=== PATIENT | female | born 1985 | race Caucasian/White ===

== ENCOUNTER 2022-05-31 11:53 | Inpatient (IN) | payer MEDICAID ==
[~2022-05-31] VITALS: Ht 154.9 cm; Wt 86.2 kg
[~2022-05-31 11:53] MED LIST: LIDOCAINE/EPI 2% 1:100000 20 ML VIAL INJ ONE; METOCLOPRAMIDE HCL 10 MG/2 ML VIAL ONE; MORPHINE SULFATE 10MG/10ML PF AMP ONE; NS IRRIG SOLN 1000 ML IR ONE; ONDANSETRON HCL 4 MG/2 ML VIAL ONE; OXYTOCIN 10 UNIT/ML VIAL ONE; PHENYLEPHRINE HCL 10 MG/ML VIAL (NEOSYNEPHRINE) ONE; ceFAZolin SODIUM 1 GM VIAL ONE
[2022-05-31] MEDS ORDERED: LR 1,000 ML IV ONE (13:00)
[2022-05-31] MEDS ORDERED: TERBUTALINE SULFATE 1 MG/ML VIAL SUBCUT ONE (13:00)
[2022-05-31] MEDS ORDERED: NALBUPHINE HCL 10 MG/ML AMP IVP PRN (13:00)
[2022-05-31] MEDS ORDERED: OXYTOCIN/0.9 % SODIUM CHLORIDE 1,000 ML IV SCH (13:00)
[2022-05-31 13:25] LABS: BASOPHILS % (AUTO) 0.4 % (0.0-2.0); EOSINOPHILS # (AUTO) 0.1 K/uL (0.0-0.4); EOSINOPHILS % (AUTO) 0.9 % (0.0-4.0); HEMOGLOBIN 11.3 g/dL (12.0-16.0); LYMPHOCYTES # (AUTO) 1.3 K/uL (1.0-5.5); LYMPHOCYTES % (AUTO) 17.9 % (20.5-51.5); MEAN CORPUSCULAR HEMOGLOBIN 32 pg (27-31); MEAN CORPUSCULAR HGB CONC 35 % (32-36); MEAN CORPUSCULAR VOLUME 90 fL (79.0-98.0); MONOCYTES # (AUTO) 0.5 K/uL (0.0-1.0); MONOCYTES % (AUTO) 6.6 % (1.7-9.3); NEUTROPHILS # (AUTO) 5.3 K/uL (1.8-7.7); NEUTROPHILS % (AUTO) 74.2 % (40.0-70.0); PLATELET COUNT (AUTO) 170 K/uL (130-430); RED BLOOD CELL COUNT(AUTO) 3.57 MIL/uL (4.2-6.2); RED CELL DISTRIBUTION WIDTH 14.3 % (9.0-15.0); WHITE BLOOD COUNT (AUTO) 7.2 K/uL (4.8-10.8)
[2022-05-31] MEDS ORDERED: fentaNYL CITRATE/PF 100 MCG/2 ML AMP ONE (21:52)
[2022-05-31] MEDS ORDERED: ROPIVACAINE HCL/PF 0.2% 200 ML ONE (21:53)
[2022-05-31] MEDS ORDERED: FENT2mCg/mL-ROPIVA0.2%/NS EPID 200 ML EP SCH (22:30)
[2022-05-31] MEDS ORDERED: NALOXONE HCL 0.4 MG/ML AMP (NARCAN) IVP PRN (22:30)
[2022-05-31] MEDS ORDERED: ONDANSETRON HCL 4 MG/2 ML VIAL IVP PRN (22:30)
[2022-05-31] MEDS ORDERED: DIPHENHYDRAMINE INJ 50 MG/ML VIAL IVP PRN (22:30)
[2022-05-31] MEDS: LR 1,000 ML IV SCH ×2 (23:37→23:38)
[2022-06-01] MEDS: LR 1,000 ML IV SCH ×3 (03:07→22:51)
[2022-06-01] MEDS ORDERED: LR 1,000 ML IV ONE (07:15)
[2022-06-01] MEDS ORDERED: CEFAZOLIN 2 GM IVPB PREMIX 50 ML IV ONE (07:15)
[2022-06-01 08:06] LABS: RUBELLA AB, IgG 4.92 index (Immune >0.99)
[2022-06-01 09:06] VITALS: BP_SYST 96
[2022-06-01] MEDS ORDERED: DIPHENHYDRAMINE INJ 50 MG/ML VIAL IM PRN (09:15)
[2022-06-01] MEDS ORDERED: NALOXONE HCL 0.4 MG/ML AMP (NARCAN) IVP PRN (09:15)
[2022-06-01] MEDS ORDERED: ONDANSETRON HCL 4 MG/2 ML VIAL IVP PRN (09:15)
[2022-06-01] MEDS ORDERED: MORPHINE SULFATE 10MG/10ML PF AMP EP SCH (09:15)
[2022-06-01] MEDS ORDERED: KETOROLAC TROMETHAMINE 60 MG/2 ML VIAL IM PRN (09:15)
[2022-06-01 12:06] LABS: HEPATITIS B SURFACE AG Negative (Negative)
[2022-06-02] MEDS ORDERED: LANOLIN 7 GM OINT. TP PRN (00:30)
[2022-06-02] MEDS ORDERED: MEASLES,MUMPS&RUBELLA VACC/PF 12500 UNIT/0.5 ML VIAL SUBQ PRN (00:30)
[2022-06-02] MEDS ORDERED: OXYCODONE/ACETAMINOPHEN 5-325 TABLET PO PRN ×2 (00:30)
[2022-06-02] MEDS ORDERED: HYDROcodone/ACETAMIN 5-325 MG TAB (NORCO/ VICODIN) PO PRN (00:30)
[2022-06-02] MEDS ORDERED: LR 1,000 ML IV SCH (00:30)
[2022-06-02] MEDS ORDERED: DIPHTH,PERTUSS(ACELL),TET VAC 0.5 ML VIAL (Tdap) I.M. PRN (00:30)
[2022-06-02] MEDS ORDERED: BISACODYL 10 MG/SUPPOSITORY RC PRN (00:30)
[2022-06-02] MEDS: IBUPROFEN 600 MG TABLET PO SCH ×4 (06:00→23:58)
[2022-06-02] MEDS: SIMETHICONE 80 MG TAB.CHEW PO PRN ×2 (08:47→18:12)
[2022-06-02] MEDS: DOCUSATE SODIUM 100 MG CAPSULE PO SCH ×2 (08:47→20:15)
[2022-06-02] MEDS ORDERED: TEMAZEPAM 15 MG CAPSULE PO PRN (21:00)
[2022-06-02] MEDS ORDERED: SENNOSIDES/DOCUSATE SODIUM 1 TAB TABLET(SENOKOT-S) PO SCH (21:00)
[2022-06-03] MEDS: IBUPROFEN 600 MG TABLET PO SCH ×2 (06:29→13:33)
[2022-06-03 07:44] LABS: BASOPHILS % (AUTO) 0.5 % (0.0-2.0); EOSINOPHILS # (AUTO) 0.1 K/uL (0.0-0.4); EOSINOPHILS % (AUTO) 2.1 % (0.0-4.0); HEMATOCRIT 26.5 % (36-48); HEMOGLOBIN 9.2 g/dL (12.0-16.0); LYMPHOCYTES # (AUTO) 1.4 K/uL (1.0-5.5); LYMPHOCYTES % (AUTO) 20.8 % (20.5-51.5); MEAN CORPUSCULAR HEMOGLOBIN 32 pg (27-31); MEAN CORPUSCULAR HGB CONC 35 % (32-36); MEAN CORPUSCULAR VOLUME 92 fL (79.0-98.0); MONOCYTES # (AUTO) 0.5 K/uL (0.0-1.0); MONOCYTES % (AUTO) 7.9 % (1.7-9.3); NEUTROPHILS # (AUTO) 4.5 K/uL (1.8-7.7); NEUTROPHILS % (AUTO) 68.7 % (40.0-70.0); PLATELET COUNT (AUTO) 160 K/uL (130-430); RED BLOOD CELL COUNT(AUTO) 2.89 MIL/uL (4.2-6.2); RED CELL DISTRIBUTION WIDTH 14.8 % (9.0-15.0); WHITE BLOOD COUNT (AUTO) 6.5 K/uL (4.8-10.8)
[2022-06-03] MEDS: DOCUSATE SODIUM 100 MG CAPSULE PO SCH (09:17)
== END 2022-06-03 15:50 | disposition home or self-care (01) | DRG 540 ==
LOC: SPU 11:53
PROVIDERS: ADMIT Obstetrics & Gynecology; ATTEND Obstetrics & Gynecology
PROC: 10D00Z1 Extraction of Products of Conception, Low, Open Approach (ICD-10-PCS; principal; 2022-06-01 08:18)
DX: O62.2 Other uterine inertia (principal); O45.93 Premature separation of placenta, unspecified, third trimester; O69.1XX0 Labor and delivery complicated by cord around neck, with compression, not applicable or unspecified; Z20.822 Contact with and (suspected) exposure to COVID-19; Z3A.39 39 weeks gestation of pregnancy; Z37.0 Single live birth
CPT/HCPCS: 36415; 81002; 85025; 86592; 86762; 86870; 86886; 86900; 86901; 87340; 90715; 94760; J0690; J1885; J2274; J2370; J2405; J2590; J2765; J3010